=== PATIENT | male | born 1985 | race Caucasian/White ===

== ENCOUNTER 2017-03-01 07:44 | Day surgery (SDC) | payer OTHER ==
[2017-03-01] MEDS ORDERED: MIDAZOLAM 2 MG/2 ML VIAL IVP ONE (07:48)
[2017-03-01] MEDS ORDERED: BENZOCAINE UNIT DOSE SPRAY HURRICAINE MM ONE (07:48)
[2017-03-01] MEDS ORDERED: NS 500 ML IV ONE (07:48)
[2017-03-01] MEDS ORDERED: fentaNYL 100 MCG/2 ML INJ IVP ONE (07:48)
[2017-03-01] MEDS ORDERED: fentaNYL 100 MCG/2 ML INJ ONE (08:42)
[2017-03-01] MEDS ORDERED: MIDAZOLAM 2 MG/2 ML VIAL ONE (08:42)
--- NOTE | 2017-03-01 09:48 | PDPROPOC ---
Sedation Plan of Care Sedation Plan of Care: vital signs stable, mental status noted, patient educated of risks, benefits, alternatives, patient can tolerate sedation ASA Classification: ASA 1 Planned drugs: fentanyl, midazolam Mallampati Score: Class 1 Mallampati Reference Image: Patient passed 3-3-2 rule?: Yes
--- NOTE | 2017-03-01 09:48 | PDHPUP ---
History & Physical Update H&P update statement: This history and physical update is based on an assessment of the patient which was completed after admission or registration (within 24 hours), but prior to the surgery/procedure. H&P update: H&P reviewed & patient examined, no change in patient's condition since H&P completed
== END 2017-03-01 11:13 | disposition home or self-care (01) ==
LOC: FCATH 07:44
PROVIDERS: ATTEND Internal Medicine Cardiovascular Disease
PROC: B244ZZ4 Ultrasonography of Right Heart, Transesophageal (ICD-10-PCS; principal; 2017-03-01)
DX: R42 Dizziness and giddiness (principal); R00.0 Tachycardia, unspecified; Q21.1 Atrial septal defect
CPT/HCPCS: J2250; J3010